=== PATIENT | female | born 1950 | race African-American/Black ===

== ENCOUNTER 2017-05-22 13:39 | Inpatient (IN) | payer OTHER ==
[~2017-05-22] VITALS: Ht 167.6 cm; Wt 104.9 kg
[2017-05-22 15:20] LABS: EOSINOPHILS % 2.1 % (0.0-5.0); HEMATOCRIT. 38.3 % (36.0-48.0); HEMOGLOBIN. 12.9 g/dL (12.0-16.0); LYMPHOCYTES % 26.2 % (20.0-50.0); MEAN CORPUSCULAR HEMOGLOBIN 29.7 pg (28.0-32.0); MEAN CORPUSCULAR VOLUME 88.2 fL (81.0-99.0); MEAN PLATELET VOLUME 9.5 fl (7.4-10.4); MONOCYTES % 5.6 % (2.0-8.0); NEUTROPHILS % 65.1 % (40.0-76.0); PLATELET 228 x1000/uL (130-400); RED BLOOD CELL COUNT 4.35 mill/uL (4.2-5.4); RED CELL DISTRIBUTION WIDTH 15.4 % (11.6-14.6)
[2017-05-22 15:21] LABS: PROTHROMBIN TIME 10.4 sec
[2017-05-22 15:23] LABS: CLARITY URINE CLOUDY (CLEAR); COLOR URINE YELLOW (YELLOW); GLUCOSE URINE NEGATIVE (NEGATIVE); KETONES URINE NEGATIVE (NEGATIVE); LEUKOCYTE ESTERASE URINE 3+ (NEGATIVE); NITRITE URINE POSITIVE (NEGATIVE); OCCULT BLOOD URINE TRACE (NEGATIVE); PH URINE 5.5 (4.5-8.0); PROTEIN URINE NEGATIVE (NEGATIVE); SPECIFIC GRAVITY URINE 1.016 (1.005-1.030); UROBILINOGEN URINE 0.2 E.U./dL (0.2-1.0)
[2017-05-22 15:26] LABS: AMMONIA 23 uMol/L (<32); CHLORIDE 107 mEq/L (98-107)
[2017-05-22 15:34] LABS: *AMPHETAMINES SCREEN URINE NEGATIVE (NEGATIVE); *BARBITURATES SCREEN URINE NEGATIVE (NEGATIVE); *BENZODIAZEPINES SCREEN URINE NEGATIVE (NEGATIVE); *COCAINE SCREEN URINE NEGATIVE (NEGATIVE); CANNABINOID URINE SCREEN NEGATIVE (NEGATIVE); METHADONE URINE SCREEN NEGATIVE (NEGATIVE); OPIATES URINE SCREEN NEGATIVE (NEGATIVE); PHENCYCLIDINE URINE SCREEN NEGATIVE (NEGATIVE)
[2017-05-22 15:36] LABS: CARBON DIOXIDE 28 mEq/L (21-32); CREATINE KINASE 88 IU/L (26-192); ETHANOL BLOOD < 10 mg/dL; TROPONIN I < 0.02 ng/mL (0.00-0.04)
[2017-05-22] MEDS ORDERED: ASPIRIN 81MG TABLET PO ONE (17:00)
[2017-05-22] MEDS ORDERED: CEFTRIAXONE 1 G PREMIX 50 ML IV ONE (17:00)
[2017-05-22] MEDS ORDERED: CLONIDINE 0.1MG TABLET PO ONE (18:00)
[2017-05-22 20:00] VITALS: BP 134/75
[2017-05-22] MEDS ORDERED: ENOXAPARIN 40MG/0.4ML SYR SUBCUT SCH (21:00)
[2017-05-22] MEDS ORDERED: MORPHINE SULFATE 2 MG/ML CPJ (NOT FOR IM USE) IV PRN (21:00)
[2017-05-22] MEDS: ZOLPIDEM TARTRATE 5MG TABLET PO PRN (23:23)
[2017-05-23 00:11] VITALS: BP 121/67
[2017-05-23] MEDS ORDERED: ESCI10TA54 PO (01:33)
[2017-05-23 04:00] VITALS: BP 114/58
[2017-05-23 06:39] LABS: BASOPHILS % 0.6 % (0.0-2.0); EOSINOPHILS % 2.8 % (0.0-5.0); HEMATOCRIT. 34.8 % (36.0-48.0); HEMOGLOBIN. 11.8 g/dL (12.0-16.0); LYMPHOCYTES % 30.9 % (20.0-50.0); MEAN CORPUSCULAR HEMOGLOBIN 29.6 pg (28.0-32.0); MEAN CORPUSCULAR VOLUME 87.5 fL (81.0-99.0); MEAN PLATELET VOLUME 9.7 fl (7.4-10.4); MONOCYTES % 5.2 % (2.0-8.0); NEUTROPHILS % 60.5 % (40.0-76.0); PLATELET 217 x1000/uL (130-400); RED BLOOD CELL COUNT 3.98 mill/uL (4.2-5.4)
[2017-05-23 07:50] LABS: CARBON DIOXIDE 28 mEq/L (21-32); CHLORIDE 107 mEq/L (98-107); HDL CHOLESTEROL 48 mg/dL (40-59); LDL CHOLESTEROL 78 mg/dL (5-100)
[2017-05-23 07:52] VITALS: BP 142/61
[2017-05-23] MEDS: ASPIRIN 325MG EC TABLET PO SCH (11:55)
[2017-05-23 12:06] VITALS: BP 139/57
[2017-05-23] MEDS ORDERED: ACETAMINOPHEN 650MG SUPP PR PRN (15:45)
[2017-05-23] MEDS ORDERED: DIPHENHYDRAMINE 50MG/ML VIAL IV PRN (15:45)
[2017-05-23] MEDS ORDERED: HYDROCODONE/ACETAMINOPHEN 5/325MG TABLET PO PRN (15:45)
[2017-05-23] MEDS ORDERED: MAGNESIUM/ALUMINUM HYDROXIDE/SIMETHICONE 30ML UDC PO PRN (15:45)
[2017-05-23] MEDS ORDERED: ACETAMINOPHEN 650MG/20.3ML UDC GT PRN (15:45)
[2017-05-23] MEDS ORDERED: GUAIFENESIN 200MG/10ML SUGAR FREE UDC PO PRN (15:45)
[2017-05-23] MEDS ORDERED: DOCUSATE SODIUM 100MG CAPSULE PO PRN (15:45)
[2017-05-23] MEDS ORDERED: IPRATROPIUM/ALBUTEROL 0.5-3(2.5)MG/3ML NEB INH PRN (15:45)
[2017-05-23] MEDS ORDERED: ACETAMINOPHEN 325MG TABLET PO PRN (15:45)
[2017-05-23 16:00] VITALS: BP 143/59
[2017-05-23] MEDS ORDERED: NA PHOS,M-B/NA PHOS,DI-BA ENEMA 118ML PR PRN (16:00)
[2017-05-23 20:00] VITALS: BP 147/70
[2017-05-23] MEDS: ATORVASTATIN CALCIUM 10MG TABLET PO SCH (20:30)
[2017-05-23] MEDS: ENOXAPARIN 30MG/0.3ML SYR SUBCUT SCH (20:32)
[2017-05-23] MEDS: SODIUM CHLORIDE 0.9% INJ 3ML FLUSH IVF SCH (21:12)
[2017-05-24] VITALS: BP 154/60
[2017-05-24] MEDS: ZOLPIDEM TARTRATE 5MG TABLET PO PRN (00:29)
[2017-05-24 04:00] VITALS: BP 127/70
[2017-05-24] MEDS: SODIUM CHLORIDE 0.9% INJ 3ML FLUSH IVF SCH ×3 (05:16→21:07)
[2017-05-24 07:53] VITALS: BP 134/64
[2017-05-24] MEDS: ENOXAPARIN 30MG/0.3ML SYR SUBCUT SCH ×2 (09:20→21:06)
[2017-05-24] MEDS: ASPIRIN 325MG EC TABLET PO SCH (09:20)
[2017-05-24 12:00] VITALS: BP 151/69
[2017-05-24] MEDS: ONDANSETRON HCL 4MG/2ML VIAL IV PRN ×2 (13:48→18:48)
[2017-05-24 16:00] VITALS: BP 149/65
[2017-05-24 20:12] VITALS: BP 145/69
[2017-05-24] MEDS: ATORVASTATIN CALCIUM 10MG TABLET PO SCH (21:06)
[2017-05-25 00:07] VITALS: BP 148/68
[2017-05-25 04:22] VITALS: BP 124/62
[2017-05-25] MEDS: SODIUM CHLORIDE 0.9% INJ 3ML FLUSH IVF SCH ×2 (06:18→13:22)
[2017-05-25 07:25] VITALS: BP 132/71
[2017-05-25] MEDS: ONDANSETRON HCL 4MG/2ML VIAL IV PRN (08:42)
[2017-05-25] MEDS: ASPIRIN 325MG EC TABLET PO SCH (08:42)
[2017-05-25] MEDS: ENOXAPARIN 30MG/0.3ML SYR SUBCUT SCH (08:42)
[2017-05-25 12:00] VITALS: BP 135/83
[2017-05-25 16:00] VITALS: BP 146/90
[2017-05-25] MEDS ORDERED: LEVOFLOXACIN 500MG PREMIX 100 ML IV SCH (17:00)
[2017-05-25 18:17] VITALS: BP 146/90
== END 2017-05-25 19:05 | disposition home or self-care (01) | DRG 65 ==
LOC: ER 14:42 → 6WST 14:43 → ER 17:37 → EDBEDREQ 18:16 → CANRESERV 18:40 → ENRESERV 18:40
PROVIDERS: ADMIT Family Medicine; ATTEND Family Medicine
DX: I63.9 Cerebral infarction, unspecified (principal); N39.0 Urinary tract infection, site not specified; I10 Essential (primary) hypertension; F32.9 Major depressive disorder, single episode, unspecified; F41.9 Anxiety disorder, unspecified; R47.81 Slurred speech; E66.01 Morbid (severe) obesity due to excess calories; Z68.37 Body mass index [BMI] 37.0-37.9, adult; Z90.710 Acquired absence of both cervix and uterus; Z79.899 Other long term (current) drug therapy
CPT/HCPCS: 36415; 70450; 70544; 70553; 71010; 80048; 80053; 80061; 80305; 81001; 82140; 82550; 82962; 83036; 83605; 84443; 84484; 85025; 85610; 87040; 87077; 87086; 87186; 92610; 93005; 93306; 93880; 96365; 97162; 97166; 99285; G0482; J0696; J1650; J1956; J2270; J2405; J7040